=== PATIENT | female | born 1995 | race Caucasian/White ===

== ENCOUNTER 2023-01-08 18:12 | Day surgery (SDC) | payer OTHER ==
[2023-01-08 19:05] VITALS: BMI 25.6
[2023-01-08] MEDS ORDERED: hydrALAZINE 20 MG/ML VIAL SLOW IVP PRN (20:17)
== END 2023-01-08 22:05 | disposition home or self-care (01) ==
LOC: CSHLD/OP 18:12
PROVIDERS: ATTEND Family Medicine
DX: O47.1 False labor at or after 37 completed weeks of gestation (principal); O99.343 Other mental disorders complicating pregnancy, third trimester; F32.A Depression, unspecified; F41.0 Panic disorder [episodic paroxysmal anxiety]; Z86.16 Personal history of COVID-19; F40.10 Social phobia, unspecified; Z79.899 Other long term (current) drug therapy; Z3A.38 38 weeks gestation of pregnancy
CPT/HCPCS: 99283

== ENCOUNTER 2023-01-11 19:56 | Inpatient (IN) | payer OTHER ==
[2023-01-11] MEDS ORDERED: NS w/ Oxytocin 30 units 500 ML IV SCH (20:30)
[2023-01-11 20:36] VITALS: BMI 25.6
[2023-01-11] MEDS ORDERED: hydrALAZINE 20 MG/ML VIAL SLOW IVP PRN (22:10)
[2023-01-11] MEDS ORDERED: Promethazine HCl 25 MG/ML VIAL IM PRN (22:15)
[2023-01-11] MEDS ORDERED: Ondansetron PF 4 MG/2 ML Vial IVP PRN (22:15)
[2023-01-11] MEDS ORDERED: Tranexamic Acid 1,000 MG/10 ML VIAL IVP PRN (22:15)
[2023-01-11] MEDS ORDERED: Carboprost 250 MCG/ML AMP IM PRN (22:15)
[2023-01-11] MEDS ORDERED: Diphenoxylate HCl/Atropine Tablet PO PRN (22:15)
[2023-01-11] MEDS ORDERED: Misoprostol 200 MCG TAB PR PRN (22:15)
[2023-01-11] MEDS ORDERED: Methylergonovine 0.2 MG/ML VIAL IM PRN (22:15)
[2023-01-11] MEDS ORDERED: Lidocaine 1% (PF) 30 ML VIAL SC PRN (22:17)
[2023-01-11] MEDS ORDERED: Ibuprofen 800 MG TAB PO PRN (22:17)
[2023-01-11 23:31] LABS: Hemoglobin 11.7 g/dL (12.0-15.5); Mean Corpuscular HGB CONC 34.2 g/dL (32.0-36.0); Mean Corpuscular Hemoglobin 31.6 pg (27.0-33.0); Mean Corpuscular Volume 92.4 fl (81.6-98.3); Mean Platelet Volume 13.1 fl (7.4-10.4); Platelet Count 127 10x3/uL (150-450); RBC Distribution Width 12.9 % (11.5-14.5); White Blood Cell (WBC) Count 11.4 10x3/uL (3.5-10.5)
[2023-01-11] MEDS ORDERED: Fentanyl 2 mcg/Bup 0.1% Cadd 100 ML ONE (23:47)
[2023-01-11] MEDS: Lactated Ringer's 1,000 ML IV SCH ×2 (23:50→23:55)
[2023-01-12 00:06] LABS: HBSAg Index 0.14 S/CO (0-0.99); Hep B Surf Ag - L&D Non-Reactive S/CO (NonReactive); Syphilis Antibody Nonreactive (Nonreactive)
[2023-01-12] MEDS ORDERED: Promethazine HCl 25 MG/ML VIAL IM PRN ×2 (00:23→17:32)
[2023-01-12] MEDS ORDERED: Acetaminophen 325 MG TAB PO PRN (00:23)
[2023-01-12] MEDS ORDERED: Moisturizing Cream (Eucerin) 113 GM JAR TOP PRN ×2 (00:23→09:00)
[2023-01-12] MEDS ORDERED: diphenhydrAMINE 50 MG/ML VIAL IVP PRN (00:23)
[2023-01-12] MEDS ORDERED: Naloxone HCl 0.4 mg/ml Vial IVP PRN ×2 (00:23)
[2023-01-12] MEDS ORDERED: ePHEDrine Sulfate 50 MG/10 ML VIAL SLOW IVP PRN (00:23)
[2023-01-12] MEDS ORDERED: Ondansetron PF 4 MG/2 ML Vial IVP PRN ×2 (00:23→17:32)
[2023-01-12] MEDS ORDERED: Lactated Ringer's 500 ML IV PRN (00:23)
[2023-01-12] MEDS ORDERED: Communication Order-Pharmacy FS SCH (00:30)
[2023-01-12] MEDS ORDERED: Fentanyl 2 mcg/Bupivacaine 0.1% Cassette 100 ML EPIDURAL SCH (00:30)
[2023-01-12] MEDS ORDERED: Carboprost 250 MCG/ML AMP ONE (02:01)
[2023-01-12 07:32] LABS: pH (Cord, venous) 7.342 (7.250-7.350)
[2023-01-12] MEDS: Lactated Ringer's 1,000 ML IV SCH (08:10)
[2023-01-12] MEDS ORDERED: Bupivacaine 0.25% HCL 30 ML VIAL ONE (11:00)
[2023-01-12] MEDS ORDERED: Benzocaine-Menthol 82.5 ML CAN TOP PRN (13:11)
[2023-01-12] MEDS ORDERED: Ibuprofen 800 MG TAB PO SCH (17:00)
[2023-01-12] MEDS ORDERED: HYDROcodone/Acetaminophen 5/325 mg Tablet PO PRN (17:32)
[2023-01-12] MEDS ORDERED: Lanolin Ointment 7 GM TUBE TOP PRN (17:32)
[2023-01-12] MEDS ORDERED: Bisacodyl 10 MG SUPP PR PRN (17:32)
[2023-01-12] MEDS ORDERED: hydrALAZINE 20 MG/ML VIAL SLOW IVP PRN (17:32)
[2023-01-12] MEDS ORDERED: diphenhydrAMINE 25 MG CAP PO PRN (17:32)
[2023-01-12] MEDS ORDERED: Boostrix 0.5 ML (Tdap) VIAL (>/=7 yrs of age) IM ONE (17:32)
[2023-01-12] MEDS ORDERED: Milk Of Magnesia 30 ML UDCUP PO PRN (17:32)
[2023-01-12] MEDS: Docusate 100 MG CAP PO SCH (21:36)
[2023-01-12] MEDS: Ibuprofen 800 MG TAB PO SCH (21:36)
[2023-01-13] MEDS: Ibuprofen 800 MG TAB PO SCH ×3 (06:01→21:29)
[2023-01-13] MEDS: Ferrous Sulfate 325 MG TAB PO SCH ×2 (07:42→19:25)
[2023-01-13] MEDS: Docusate 100 MG CAP PO SCH ×2 (08:24→21:29)
[2023-01-13] MEDS: Prenatal Vitamin 1 TAB PO SCH (08:24)
[2023-01-14] MEDS: Ibuprofen 800 MG TAB PO SCH ×2 (05:51→13:50)
[2023-01-14 07:52] VITALS: BP 134/81; TEMP 97.8
[2023-01-14] MEDS: Ferrous Sulfate 325 MG TAB PO SCH (08:33)
[2023-01-14] MEDS: Docusate 100 MG CAP PO SCH (08:34)
[2023-01-14] MEDS: Prenatal Vitamin 1 TAB PO SCH (08:34)
== END 2023-01-14 19:30 | disposition home or self-care (01) | DRG 807 ==
LOC: CSHLD/OP 19:56 → CSHLD 22:24 → CSHPP 01-12 10:10
PROVIDERS: ADMIT Family Medicine; ATTEND Family Medicine
PROC: 10D07Z6 Extraction of Products of Conception, Vacuum, Via Natural or Artificial Opening (ICD-10-PCS; principal; 2023-01-12)
PROC: 0HQ9XZZ Repair Perineum Skin, External Approach (ICD-10-PCS; 2023-01-12)
PROC: 0UQMXZZ Repair Vulva, External Approach (ICD-10-PCS; 2023-01-12)
DX: O76 Abnormality in fetal heart rate and rhythm complicating labor and delivery (principal); Z37.0 Single live birth; Z3A.38 38 weeks gestation of pregnancy; F41.9 Anxiety disorder, unspecified; D64.9 Anemia, unspecified; O99.344 Other mental disorders complicating childbirth; O69.1XX0 Labor and delivery complicated by cord around neck, with compression, not applicable or unspecified; O99.02 Anemia complicating childbirth; Z91.040 Latex allergy status; O70.0 First degree perineal laceration during delivery
CPT/HCPCS: 36415; 51702; 82805; 85027; 86780; 86850; 86900; 86901; 87340; 99285; J7120; S0020